=== PATIENT | female | born 1965 | race American Indian/Alaskan Native ===

== ENCOUNTER 2017-12-26 18:30 | Observation (INO) | payer MEDICAID ==
[2017-12-26] MEDS ORDERED: Sodium Chloride 0.9% 1,000 ML IV ONE ×2 (18:32→20:15)
[2017-12-26] MEDS ORDERED: Aspirin 81 MG Tab.Chew PO ONE (18:32)
[2017-12-26] MEDS ORDERED: Nitroglycerin 0.4 MG Tab.SL SL PRN (18:32)
--- NOTE | 2017-12-26 18:35 | EDM.PDOC ---
ED HPI GENERAL MEDICAL PROBLEM - General Stated Complaint: CHEST PAIN Time Seen by Provider: 12/26/17 18:34 Source of Information: Reports: Patient History Limitations: Reports: No Limitations - History of Present Illness INITIAL COMMENTS - FREE TEXT/NARRATIVE: HISTORY AND PHYSICAL: History of present illness: Patient is a 51-year-old female who presents to the emergency room today with complaints of left upper chest wall pain that wraps around her left breast. This pain started approximately 45 minutes prior to arrival. She does state this is associated with diaphoresis. Denies any fever, chills, shortness of breath, cough. Denies any abdominal pain, nausea, vomiting, diarrhea or constipation. She has no history of heart disease. Review of systems: As per history of present illness and below otherwise all systems reviewed and negative. Past medical history: As per history of present illness and as reviewed below otherwise noncontributory. Surgical history: As per history of present illness and as reviewed below otherwise noncontributory. Social history: No reported history of drug or alcohol abuse. Family history: As per history of present illness and as reviewed below otherwise noncontributory. Physical exam: General: Well-developed and well-nourished 51-year-old female. Alert and oriented. Nontoxic appearing and in no acute distress HEENT: Atraumatic, normocephalic, pupils equal and reactive bilaterally, negative for conjunctival pallor or scleral icterus, mucous membranes moist, throat clear, neck supple, nontender, trachea midline. No drooling or trismus noted. No meningeal signs Lungs: Clear to auscultation, breath sounds equal bilaterally, chest tender with palpation - reproducible. Heart: S1S2, regular rate and rhythm without overt murmur Abdomen: Soft, nondistended, nontender. Negative for masses or hepatosplenomegaly. Negative for costovertebral tenderness. Pelvis: Stable nontender. Genitourinary: Deferred. Rectal: Deferred. Skin: Intact, warm, dry. No lesions or rashes noted. Extremities: Atraumatic, negative for cords or calf pain. Neurovascular unremarkable. Neuro: Awake, alert, oriented. Cranial nerves II through XII unremarkable. Cerebellum unremarkable. Motor and sensory unremarkable throughout. Exam nonfocal. Notes: EKG shows no acute findings. Her chest pain is reproducible with palpation. We' ll continue with a full cardiac workup along with aspirin and nitroglycerin at this time. Patient pain free prior to receiving nitro, medication is currently on hold at this time. Lab results are unremarkable at this time. Chest x-ray shows no evidence of pneumonia or infiltrate. These were shared with the patient. Patient states she currently is pain free. Did discuss admission with patient. She states that she would like to stay overnight. Dr. Burt was consult on this case is agreeable. Be admitted to observation with telemetry. Diagnostics: CBC, CMP, troponin, EKG, chest x-ray Therapeutics: Saline, aspirin, nitroglycerin, Toradol Impression: Chest pain rule out GA Plan: Observation admission to Med/Surg with Telemetry Definitive disposition and diagnosis as appropriate pending reevaluation and review of above. Onset: Today Duration: Minutes: Location: Reports: Chest chest Pain Score (Numeric/FACES): 7 - Related Data Allergies Allergy/AdvReac Type Severity Reaction Status Date / Time No Known Allergies Allergy Verified 12/26/17 18:33 Home Meds: Home Meds . [No Known Home Meds] 12/26/17 [History] ED ROS GENERAL - Review of Systems Review Of Systems: ROS reveals no pertinent complaints other than HPI. ED EXAM, GENERAL - Physical Exam Exam: See Below (See dictation) Course - Vital Signs Last Recorded V/S: Last Vital Signs Temp 96.9 F 12/26/17 18:33 Pulse 64 12/26/17 19:59 Resp 19 12/26/17 19:59 BP 149/80 H 12/26/17 19:59 Pulse Ox 98 12/26/17 19:59 - Orders/Labs/Meds Orders: Active Orders 24 hr Category Date Time Status Patient Status [ADT] Stat ADT 12/26/17 20:15 Active EKG Documentation Completion [RC] STAT Care 12/26/17 18:32 Active Chest 1V Frontal [CR] Stat Exams 12/26/17 18:32 Taken Nitroglycerin [Nitrostat] Med 12/26/17 18:32 Active 0.4 mg SL Q5M PRN Sodium Chloride 0.9% [Normal Saline] 1,000 ml Med 12/26/17 20:15 Active IV STAT Medication Orders Sodium Chloride (Normal Saline) 1,000 mls @ 125 mls/hr IV STAT ONE Stop: 12/27/17 04:14 Nitroglycerin (Nitrostat) 0.4 mg SL Q5M PRN PRN Reason: Chest Pain Labs: Laboratory Tests 12/26/17 12/26/17 Range/Units 18:41 18:41 WBC 8.83 (4.0-11.0) K/uL RBC 4.78 (4.30-5.90) M/uL Hgb 13.9 (12.0-16.0) g/dL Hct 40.9 (36.0-46.0) % MCV 85.6 (80.0-98.0) fL MCH 29.1 (27.0-32.0) pg MCHC 34.0 (31.0-37.0) g/dL RDW Std Deviation 44.8 (28.0-62.0) fl RDW Coeff of Willian 15 (11.0-15.0) % Plt Count 156 (150-400) K/uL MPV 11.60 (7.40-12.00) fL Neut % (Auto) 52.0 (48.0-80.0) % Lymph % (Auto) 38.6 (16.0-40.0) % [place] % (Auto) 8.2 (0.0-15.0) % Eos % (Auto) 0.9 (0.0-7.0) % Baso % (Auto) 0.3 (0.0-1.5) % Neut # (Auto) 4.6 (1.4-5.7) K/uL Lymph # (Auto) 3.4 H (0.6-2.4) K/uL [place] # (Auto) 0.7 (0.0-0.8) K/uL Eos # (Auto) 0.1 (0.0-0.7) K/uL Baso # (Auto) 0.0 (0.0-0.1) K/uL Nucleated RBC % 0.0 /100WBC Nucleated RBCs # 0 K/uL Sodium 141 (136-145) mmol/L Potassium 3.7 (3.5-5.1) mmol/L Chloride 105 (98-107) mmol/L Carbon Dioxide 23.7 (21.0-32.0) mmol/L BUN 15 (7.0-18.0) mg/dL Creatinine 0.9 (0.6-1.0) mg/dL Est Cr Clr Drug Dosing 69.23 mL/min Estimated GFR (MDRD) > 60.0 ml/min Glucose 103 (74-106) mg/dL Calcium 9.2 (8.5-10.1) mg/dL Total Bilirubin 1.0 (0.2-1.0) mg/dL AST 54 H (15-37) IU/L ALT 53 (14-63) IU/L Alkaline Phosphatase 95 (46-116) U/L Troponin I < 0.050 (0.000-0.056) ng/mL Total Protein 8.3 H (6.4-8.2) g/dL Albumin 4.0 (3.4-5.0) g/dL Globulin 4.3 H (2.0-3.5) g/dL Albumin/Globulin Ratio 0.9 L (1.3-2.8) Meds: Medications Generic Name Dose Route Start Last Admin Trade Name Freq PRN Reason Stop Dose Admin Sodium Chloride 1,000 mls @ 125 mls/hr 12/26/17 20:15 Normal Saline IV 12/27/17 04:14 STAT ONE Nitroglycerin 0.4 mg 12/26/17 18:32 Nitrostat SL Q5M PRN Chest Pain Discontinued Medications Generic Name Dose Route Start Last Admin Trade Name Freq PRN Reason Stop Dose Admin Aspirin 324 mg 12/26/17 18:32 12/26/17 18:48 Aspirin PO 12/26/17 18:33 324 mg ONETIME ONE Administration Sodium Chloride 1,000 mls @ 999 mls/hr 12/26/17 18:32 12/26/17 18:48 Normal Saline IV 12/26/17 19:32 999 mls/hr STAT ONE Administration Ketorolac Tromethamine 30 mg 12/26/17 18:36 12/26/17 18:48 Toradol IVPUSH 12/26/17 18:37 30 mg ONETIME ONE Administration Morphine Sulfate 2 mg 12/26/17 20:15 Morphine IVPUSH 12/26/17 20:16 ONETIME ONE Departure - Departure Time of Disposition: 20:18 Disposition: Refer to Observation Clinical Impression: Chest pain, rule out acute myocardial infarction Referrals: PCP,None [Primary Care Provider] - - My Orders Last 24 Hours: My Active Orders 12/26/17 18:32 EKG Documentation Completion [RC] STAT Chest 1V Frontal [CR] Stat Nitroglycerin [Nitrostat] 0.4 mg SL Q5M PRN 12/26/17 20:15 Patient Status [ADT] Stat Sodium Chloride 0.9% [Normal Saline] 1,000 ml IV STAT - Assessment/Plan Last 24 Hours: My Active Orders 12/26/17 18:32 EKG Documentation Completion [RC] STAT Chest 1V Frontal [CR] Stat Nitroglycerin [Nitrostat] 0.4 mg SL Q5M PRN 12/26/17 20:15 Patient Status [ADT] Stat Sodium Chloride 0.9% [Normal Saline] 1,000 ml IV STAT
[2017-12-26] MEDS ORDERED: Ketorolac 30 MG/ML SDV IVPUSH ONE (18:36)
[2017-12-26 19:22] LABS: CHLORIDE,CL 105 mmol/L (98-107); SODIUM,NA 141 mmol/L (136-145)
[2017-12-26] MEDS ORDERED: Morphine 2 MG/ML Syringe IVPUSH ONE (20:15)
[2017-12-26] MEDS ORDERED: Acetaminophen 325 MG Tab PO PRN (21:46)
--- NOTE | 2017-12-26 21:50 | PCM.HP ---
H&P History of Present Illness - General Date of Service: 12/27/17 Admit Problem/Dx: Admission Diagnosis/Problem Admission Diagnosis/Problem Chest pain, rule out acute myocardial infarction - History of Present Illness Initial Comments - Free Text/Narative: 51 yo female who presents to ED with chest pain. Patient reports left sided chest pain that she describes as a squeeze that lasted ten seconds. It was not associated with any other symptoms. It occured while she was working in the [employer]. chest Pain Score (Numeric/FACES): 7 - Related Data Allergies/Adverse Reactions: Allergies Allergy/AdvReac Type Severity Reaction Status Date / Time No Known Allergies Allergy Verified 12/26/17 18:33 Home Medications: Home Meds . [No Known Home Meds] 12/26/17 [History] Past Medical History - Infectious Disease History Infectious Disease History: Reports: None - Past Surgical History GI Surgical History: Reports: Cholecystectomy Social & Family History - Family History Family Medical History: Noncontributory - Tobacco Use Smoking Status *Q: Never Smoker - Recreational Drug Use Recreational Drug Use: No H&P Review of Systems - Review of Systems: Review Of Systems: ROS reveals no pertinent complaints other than HPI. Exam - Exam Exam: See Below - Vital Signs Vital Signs: Last Vital Signs Temp 36.1 C 12/26/17 18:33 Pulse 64 12/26/17 19:59 Resp 19 12/26/17 19:59 BP 149/80 H 12/26/17 19:59 Pulse Ox 98 12/26/17 19:59 Weight: 104.326 kg - Exam General: Alert, Oriented HEENT: Mucosa Moist & [place] Lungs: Clear to Auscultation, Normal Respiratory Effort Cardiovascular: Regular Rate, Regular Rhythm GI/Abdominal Exam: Normal Bowel Sounds, Soft, Non-Tender, No Distention Extremities: Non-Tender, No Pedal Edema Skin: Warm, Dry, Intact - Patient Data Lab Results Last 24 hrs: Laboratory Results - last 24 hr 12/26/17 12/26/17 Range/Units 18:41 18:41 WBC 8.83 (4.0-11.0) K/uL RBC 4.78 (4.30-5.90) M/uL Hgb 13.9 (12.0-16.0) g/dL Hct 40.9 (36.0-46.0) % MCV 85.6 (80.0-98.0) fL MCH 29.1 (27.0-32.0) pg MCHC 34.0 (31.0-37.0) g/dL RDW Std Deviation 44.8 (28.0-62.0) fl RDW Coeff of Willian 15 (11.0-15.0) % Plt Count 156 (150-400) K/uL MPV 11.60 (7.40-12.00) fL Neut % (Auto) 52.0 (48.0-80.0) % Lymph % (Auto) 38.6 (16.0-40.0) % [place] % (Auto) 8.2 (0.0-15.0) % Eos % (Auto) 0.9 (0.0-7.0) % Baso % (Auto) 0.3 (0.0-1.5) % Neut # (Auto) 4.6 (1.4-5.7) K/uL Lymph # (Auto) 3.4 H (0.6-2.4) K/uL [place] # (Auto) 0.7 (0.0-0.8) K/uL Eos # (Auto) 0.1 (0.0-0.7) K/uL Baso # (Auto) 0.0 (0.0-0.1) K/uL Nucleated RBC % 0.0 /100WBC Nucleated RBCs # 0 K/uL Sodium 141 (136-145) mmol/L Potassium 3.7 (3.5-5.1) mmol/L Chloride 105 (98-107) mmol/L Carbon Dioxide 23.7 (21.0-32.0) mmol/L BUN 15 (7.0-18.0) mg/dL Creatinine 0.9 (0.6-1.0) mg/dL Est Cr Clr Drug Dosing 69.23 mL/min Estimated GFR (MDRD) > 60.0 ml/min Glucose 103 (74-106) mg/dL Calcium 9.2 (8.5-10.1) mg/dL Total Bilirubin 1.0 (0.2-1.0) mg/dL AST 54 H (15-37) IU/L ALT 53 (14-63) IU/L Alkaline Phosphatase 95 (46-116) U/L Troponin I < 0.050 (0.000-0.056) ng/mL Total Protein 8.3 H (6.4-8.2) g/dL Albumin 4.0 (3.4-5.0) g/dL Globulin 4.3 H (2.0-3.5) g/dL Albumin/Globulin Ratio 0.9 L (1.3-2.8) Result Diagrams: 12/26/17 18:41 12/26/17 18:41 Problem List Initiated/Reviewed/Updated: Yes Orders Last 24hrs: Active Orders 24 hr Category Date Time Status Patient Status [ADT] Stat ADT 12/26/17 20:15 Active EKG Documentation Completion [RC] STAT Care 12/26/17 18:32 Active Chest 1V Frontal [CR] Stat Exams 12/26/17 18:32 Taken TROPONIN I [CHEM] Q6H Lab 12/27/17 01:00 Ordered TROPONIN I [CHEM] Q6H Lab 12/27/17 07:00 Ordered Nitroglycerin [Nitrostat] Med 12/26/17 18:32 Active 0.4 mg SL Q5M PRN Sodium Chloride 0.9% [Normal Saline] 1,000 ml Med 12/26/17 20:15 Stop Req IV STAT Medication Orders Sodium Chloride (Normal Saline) 1,000 mls @ 125 mls/hr IV STAT ONE Stop: 12/27/17 04:14 Last Admin: 12/26/17 20:35 Dose: 125 mls/hr Nitroglycerin (Nitrostat) 0.4 mg SL Q5M PRN PRN Reason: Chest Pain Assessment/Plan Comment:: 51 yo female presented with chest pain. She ruled out for acute coronary syndrome with serial negative cardiac enzymes and EKG. She was monitored overnight with no events on telemetry. She is discharged home and has follow up at [facility] next week in [place].
--- NOTE | 2017-12-27 17:46 | CR ---
EXAM DATE: 12/26/17 PATIENT'S AGE: 51 Patient: JOSHUA JENKINS Facility: [place], [place] Site . Site : [id number] Study: XRay Chest [id number]/14/2018 7:32:31 PM Ordering Physician: Doctor Abrams Final Report: INDICATION: chest pain TECHNIQUE: Chest 1 view COMPARISON: None FINDINGS: Cardiovascular and mediastinum: Heart size and vasculature are normal in caliber and appearance. Mediastinum is within normal limits. Lungs and pleural space: No focal consolidation. No sign of pleural effusion. No pneumothorax. Bones and soft tissues: No significant findings. IMPRESSION: No acute cardiopulmonary disease. Dictated by Manuel Alberto MD @ 12/26/2017 8:04:19 PM Dictated by: Maneul Alberto MD @ 12/26/2017 20:04:23 (Electronic Signature) Report Signed by Proxy. [facility]OSPITALMinna
== END 2017-12-27 13:25 | disposition home or self-care (01) ==
LOC: MW.ED 18:30 → MW.MS 20:40
PROVIDERS: ADMIT Internal Medicine; ATTEND Internal Medicine
DX: R07.9 Chest pain, unspecified (principal)
CPT/HCPCS: 36415; 71045; 80053; 84484; 85025; 93005; 96361; 96374; 96375; 99285; A9270; J1885; J2270; J7040; 99283; G0378

== ENCOUNTER 2019-03-13 20:30 | Emergency (ER) | payer OTHER ==
--- NOTE | 2019-03-13 20:38 | EDM.PDOC ---
ED HPI GENERAL MEDICAL PROBLEM - General Chief Complaint: Lower Extremity Injury/Pain Stated Complaint: PT HURT RT LEG AND RT ARM Time Seen by Provider: 03/13/19 20:35 Source of Information: Reports: Patient History Limitations: Reports: No Limitations - History of Present Illness INITIAL COMMENTS - FREE TEXT/NARRATIVE: HISTORY AND PHYSICAL: History of present illness: Patient is a 53-year-old female who presents to the emergency room with complaints of muscular pain to her right quadricep, shoulder, bicep and tricep. She states she wakes up in the morning and has no complaints or concerns but after a 10-12 hour work day she has muscular pain on the right upper thigh and right upper extremity. She has not tried any [id number] products. She denies any injury, trauma or falls. Denies any numbness or tingling to the affected extremity. Does not have any lesions/rashes, erythema or soft tissue swelling. Review of systems: As per history of present illness and below otherwise all systems reviewed and negative. Past medical history: As per history of present illness and as reviewed below otherwise noncontributory. Surgical history: As per history of present illness and as reviewed below otherwise noncontributory. Social history: See social history for further information Family history: As per history of present illness and as reviewed below otherwise noncontributory. Physical exam: General: Well-developed and well-nourished 53-year-old female. Alert and oriented. Nontoxic appearing and in no acute distress. HEENT: Atraumatic, normocephalic, pupils equal and reactive bilaterally, negative for conjunctival pallor or scleral icterus, mucous membranes moist, TMs normal bilaterally, throat clear, neck supple, nontender, trachea midline. No drooling or trismus noted. No meningeal signs. No hot potato voice noted. Lungs: Clear to auscultation, breath sounds equal bilaterally, chest nontender. Heart: S1S2, regular rate and rhythm without overt murmur Abdomen: Soft, nondistended, nontender. Negative for masses or hepatosplenomegaly. Negative for costovertebral tenderness. Pelvis: Stable nontender. Genitourinary: Deferred. Rectal: Deferred. Skin: Intact, warm, dry. No lesions or rashes noted. Extremities: Atraumatic, moves all extremities per self without difficulty or deficits, negative for cords or calf pain. Neurovascular unremarkable. Neuro: Awake, alert, oriented. Cranial nerves II through XII unremarkable. Cerebellum unremarkable. Motor and sensory unremarkable throughout. Exam nonfocal. Notes: Patient is vague with her complaints. She states that the myalgias are intermittent but typically daily after she gets off of work. She has not used any hdut-zfu-[id number] products or tried any heat/ice modalities. Lab work is unremarkable. She found relief with Toradol. We'll prescribe diclofenac. Encouraged her to follow up with her primary care for reevaluation and further management. Supportive care measures were reviewed and discussed. Voices understanding and is agreeable to plan of care. Denies any further questions or concerns at this time. Diagnostics: CBC, BM P Therapeutics: Toradol Prescription: Diclofenac Impression: Myalgia Plan: 1. Please use Tylenol and/or Ibuprofen as needed for pain and fever management. 2. Get plenty of Rest. Gentle stretching and heat may be helpful. 3. Please follow up with your primary care provider. Return to the ED as needed as discussed. Definitive disposition and diagnosis as appropriate pending reevaluation and review of above. right leg Pain Score (Numeric/FACES): 10 - Related Data Allergies Allergy/AdvReac Type Severity Reaction Status Date / Time No Known Allergies Allergy Verified 03/13/19 20:37 Home Meds: Home Meds Diclofenac Sodium [Voltaren] 75 mg PO BIDMEALS PRN #30 tab.cr 03/13/19 [Rx] Past Medical History - Past Health History Medical/Surgical History: Denies Medical/Surgical History Gastrointestinal History: Reports: Hepatitis Other [employer] History: Tubes tied - Infectious Disease History Infectious Disease History: Reports: None - Past Surgical History GI Surgical History: Reports: Cholecystectomy Social & Family History - Family History Family Medical History: Noncontributory - Caffeine Use Caffeine Use: Reports: Coffee, Soda, Tea Review of Systems - Review of Systems Review Of Systems: ROS reveals no pertinent complaints other than HPI. ED EXAM, GENERAL - Physical Exam Exam: See Below (See dictation) Course - Vital Signs Last Recorded V/S: Last Vital Signs Temp 97.5 F 03/13/19 20:37 Pulse 58 L 03/13/19 20:37 Resp 18 03/13/19 20:37 BP 126/66 03/13/19 20:37 Pulse Ox 95 03/13/19 20:37 - Orders/Labs/Meds Labs: Laboratory Tests 03/13/19 03/13/19 Range/Units 20:50 20:50 WBC 7.23 (4.0-11.0) K/uL RBC 4.64 (4.30-5.90) M/uL Hgb 13.5 (12.0-16.0) g/dL Hct 40.6 (36.0-46.0) % MCV 87.5 (80.0-98.0) fL MCH 29.1 (27.0-32.0) pg MCHC 33.3 (31.0-37.0) g/dL RDW Std Deviation 45.1 (28.0-62.0) fl RDW Coeff of Willian 14 (11.0-15.0) % Plt Count 134 L (150-400) K/uL MPV 11.80 (7.40-12.00) fL Neut % (Auto) 49.9 (48.0-80.0) % Lymph % (Auto) 38.9 (16.0-40.0) % [place] % (Auto) 8.7 (0.0-15.0) % Eos % (Auto) 2.2 (0.0-7.0) % Baso % (Auto) 0.3 (0.0-1.5) % Neut # (Auto) 3.6 (1.4-5.7) K/uL Lymph # (Auto) 2.8 H (0.6-2.4) K/uL [place] # (Auto) 0.6 (0.0-0.8) K/uL Eos # (Auto) 0.2 (0.0-0.7) K/uL Baso # (Auto) 0.0 (0.0-0.1) K/uL Nucleated RBC % 0.0 /100WBC Nucleated RBCs # 0 K/uL Sodium 145 (136-145) mmol/L Potassium 4.0 (3.5-5.1) mmol/L Chloride 109 H (98-107) mmol/L Carbon Dioxide 26.9 (21.0-32.0) mmol/L BUN 19 H (7.0-18.0) mg/dL Creatinine 0.8 (0.6-1.0) mg/dL Est Cr Clr Drug Dosing 82.04 mL/min Estimated GFR (MDRD) > 60.0 ml/min Glucose 106 (74-106) mg/dL Calcium 8.8 (8.5-10.1) mg/dL Meds: Medications Discontinued Medications Generic Name Dose Route Start Last Admin Trade Name Freq PRN Reason Stop Dose Admin Ketorolac Tromethamine 60 mg 03/13/19 20:42 03/13/19 21:04 Toradol IM 03/13/19 20:43 60 mg ONETIME ONE Administration Departure - Departure Time of Disposition: 21:12 Disposition: Home, Self-Care 01 Clinical Impression: Myalgia - Discharge Information Prescriptions: Diclofenac Sodium [Voltaren] 75 mg PO BIDMEALS PRN #30 tab.cr PRN Reason: Pain Instructions: Muscle Strain, [id number] Referrals: PCP,None [Primary Care Provider] - Forms: ED Department Discharge Additional Instructions: The following information is given to patients seen in the emergency department who are being discharged to home. This information is to outline your options for follow-up care. We provide all patients seen in our emergency department with a follow-up referral. The need for follow-up, as well as the timing and circumstances, are variable depending upon the specifics of your emergency department visit. If you don't have a primary care physician on staff, we will provide you with a referral. We always advise you to contact your personal physician following an emergency department visit to inform them of the circumstance of the visit and for follow-up with them and/or the need for any referrals to a consulting specialist. The emergency department will also refer you to a specialist when appropriate. This referral assures that you have the opportunity for follow-up care with a specialist. All of these measure are taken in an effort to provide you with optimal care, which includes your follow-up. Under all circumstances we always encourage you to contact your private physician who remains a resource for coordinating your care. When calling for follow-up care, please make the office aware that this follow-up is from your recent emergency room visit. If for any reason you are refused follow-up, please contact the [facility] Emergency Department at and asked to speak to the emergency department charge nurse. [facility] [address] [place] [address] [facility] [address] [place] [address] 1. Please use Tylenol and/or Ibuprofen as needed for pain and fever management. 2. Get plenty of Rest. Gentle stretching and heat may be helpful. 3. Please follow up with your primary care provider. Return to the ED as needed as discussed.
[2019-03-13] MEDS ORDERED: Ketorolac 60 MG/2 ML SDV IM ONE (20:42)
[2019-03-13 21:08] LABS: CHLORIDE,CL 109 mmol/L (98-107); SODIUM,NA 145 mmol/L (136-145)
== END 2019-03-13 21:29 | disposition home or self-care (01) ==
LOC: MW.ED 20:30
DX: M79.18 Myalgia, other site (principal)
CPT/HCPCS: 36415; 80048; 85025; 96372; 99283; J1885

== ENCOUNTER 2022-06-18 15:32 | Emergency (ER) | payer OTHER ==
[2022-06-18] MEDS ORDERED: Acetaminophen 325 MG Tab PO ONE (16:11)
[2022-06-18] MEDS ORDERED: Ibuprofen 400 MG Tab PO ONE (16:11)
== END 2022-06-18 17:39 | disposition home or self-care (01) ==
LOC: MERGE 15:32 → MW.ED 15:32
DX: S09.90XA Unspecified injury of head, initial encounter (principal); M54.2 Cervicalgia; V43.52XA Car driver injured in collision with other type car in traffic accident, initial encounter; Y92.410 Unspecified street and highway as the place of occurrence of the external cause
CPT/HCPCS: 70450; 71045; 72125; 99285; A9270